=== PATIENT | female | born 1950 | race American Indian/Alaskan Native ===

== ENCOUNTER 2018-11-04 11:07 | Day surgery (SDC) | payer MEDICARE ==
[~2018-11-04 11:07] MED LIST: IOPIDINE ONE; MYDRIACYL ONE; NEOFRIN ONE
[2018-11-04] MEDS ORDERED: IOPIDINE OD ONE ×2 (11:43→13:06)
[2018-11-04] MEDS ORDERED: NEOFRIN OD ONE (11:43)
[2018-11-04] MEDS ORDERED: MYDRIACYL OD ONE (11:43)
[2018-11-04 12:48] VITALS: BP 103/60
== END 2018-11-04 13:08 | disposition home or self-care (01) ==
LOC: OR 11:07
PROVIDERS: ATTEND Specialist
DX: H26.491 Other secondary cataract, right eye (principal); Z79.899 Other long term (current) drug therapy; Z98.42 Cataract extraction status, left eye; Z98.41 Cataract extraction status, right eye; Z72.89 Other problems related to lifestyle; Z98.890 Other specified postprocedural states

== ENCOUNTER 2018-11-11 10:37 | Day surgery (SDC) | payer MEDICARE ==
[~2018-11-11 10:37] MED LIST changes: +IOPIDINE OS ONE; +MYDRIACYL OS ONE; +NEOFRIN OS ONE
[2018-11-11] MEDS ORDERED: NEOFRIN OS ONE (11:20)
[2018-11-11] MEDS ORDERED: IOPIDINE OS ONE (11:20)
[2018-11-11] MEDS ORDERED: MYDRIACYL OS ONE (11:20)
[2018-11-11 12:37] VITALS: BP 104/59
== END 2018-11-11 10:38 | disposition home or self-care (01) ==
LOC: OR 10:37
PROVIDERS: ATTEND Specialist
DX: H26.492 Other secondary cataract, left eye (principal); Z79.899 Other long term (current) drug therapy; Z98.41 Cataract extraction status, right eye; Z98.42 Cataract extraction status, left eye; Z72.89 Other problems related to lifestyle; Z98.890 Other specified postprocedural states